=== PATIENT | female | born 1945 | race Caucasian/White ===

== ENCOUNTER 2016-11-21 09:16 | Day surgery (SDC) | payer MEDICARE, BC ==
[2016-11-21] MEDS ORDERED: ONDANSETRON HCL 4 MG/2 ML SOL ONE (10:49)
[2016-11-21 11:12] VITALS: TEMP 97.4
[2016-11-21 11:46] VITALS: PULSE 65; RESP 20
[2016-11-21 12:15] VITALS: O2SAT 93
[2016-11-21 12:37] VITALS: BP 166/80
== END 2016-11-21 13:23 | disposition home or self-care (01) | DRG 951 ==
LOC: SURG 09:16
PROVIDERS: ATTEND Internal Medicine Gastroenterology
DX: Z12.11 Encounter for screening for malignant neoplasm of colon (principal); D12.8 Benign neoplasm of rectum; K57.30 Diverticulosis of large intestine without perforation or abscess without bleeding; K64.8 Other hemorrhoids
CPT/HCPCS: J2001; J2405; J2704

== ENCOUNTER 2019-02-18 10:47 | Outpatient (CLI) | payer MEDICARE, BC | END 2019-02-18 10:48 | disposition home or self-care (01) | LOC: CONVCARE 10:47 ==